=== PATIENT | female | born 1990 | race African-American/Black ===

== ENCOUNTER 2023-08-16 10:03 | Emergency (ER) | payer MEDICAID ==
[~2023-08-16] VITALS: Ht 165.1 cm; Wt 113.0 kg
[2023-08-16 10:06] VITALS: BP 138/76; PULSE 98; RESP 18; TEMP 98.2; O2SAT 98
== END 2023-08-16 10:39 | disposition home or self-care (01) ==
LOC: ER 10:36
DX: Z00.00 Encounter for general adult medical examination without abnormal findings (principal)
CPT/HCPCS: 99283